=== PATIENT | male | born 1965 | race Caucasian/White ===

== ENCOUNTER 2020-11-12 02:53 | Emergency (ER) | payer SELFPAY ==
[2020-11-12 02:59] VITALS: PULSE 56; TEMP 98.9; BMI 30.7
[2020-11-12] MEDS ORDERED: METHOCARBAMOL 500 MG TABLET PO ONE (03:05)
[2020-11-12] MEDS ORDERED: ACETAMINOPHEN 500 MG TABLET (FP) PO ONE (03:05)
[2020-11-12] MEDS ORDERED: KETOROLAC TROMETHAMINE 30 MG/1 ML VIAL IM ONE (03:08)
[2020-11-12] MEDS ORDERED: METHOCARBAMOL 500 MG TABLET ONE (03:20)
[2020-11-12] MEDS ORDERED: ACETAMINOPHEN 500 MG TABLET (FP) ONE (03:21)
[2020-11-12] MEDS ORDERED: KETOROLAC TROMETHAMINE 30 MG/1 ML VIAL ONE (03:21)
[2020-11-12 04:24] VITALS: BP 159/100
== END 2020-11-12 04:28 | disposition home or self-care (01) ==
LOC: FER 02:53
PROC: 3E0233Z Introduction of Anti-inflammatory into Muscle, Percutaneous Approach (ICD-10-PCS; principal; 2020-11-12)
DX: M62.830 Muscle spasm of back (principal)
CPT/HCPCS: 99284-25